=== PATIENT | male | born 1965 | race Caucasian/White ===

== ENCOUNTER 2020-04-04 20:41 | Emergency (ER) | payer MEDICAID ==
[~2020-04-04] VITALS: Ht 180.3 cm; Wt 63.5 kg
[2020-04-04 21:26] LABS: BASOPHILS # (AUTO) 0.03 x10^3/uL (0-0.1); BASOPHILS % (AUTO) 1 % (0-1); EOSINOPHILS # (AUTO) 0.07 x10^3/uL (0-0.4); EOSINOPHILS % (AUTO) 1 % (1-7); LYMPHOCYTES # (AUTO) 1.88 x10^3/uL (1-3.4); LYMPHOCYTES % (AUTO) 37 % (22-44); MD NO; MEAN CORPUSCULAR HGB CONC 33.1 g/dL (33.2-36.2); MONOCYTES # (AUTO) 0.62 x10^3/uL (0.2-0.8); MONOCYTES % (AUTO) 12 % (2-9); NEUTROPHILS # (AUTO) 2.51 x10^3/uL (1.8-6.8); NEUTROPHILS % (AUTO) 49 % (42-75); PLATELET COUNT 245 x10^3/uL (130-400); RED BLOOD COUNT 4.05 x10^6/uL (4.38-5.82); RED CELL DISTRIBUTION WIDTH 13.5 % (9.4-14.8)
[2020-04-04 21:37] LABS: ALANINE AMINOTRANSFERASE 15 U/L (12-78); ANION GAP 4 mmol/L (5-15); CALCIUM 8.3 mg/dL (8.5-10.1); CHLORIDE 110 mmol/L (98-107); CREATININE 0.79 mg/dL (0.7-1.3)
[2020-04-04 21:41] LABS: ALKALINE PHOSPHATASE 68 U/L (45-117); BILIRUBIN,TOTAL 0.4 mg/dL (0.2-1.0); TOTAL PROTEIN 5.6 g/dL (6.4-8.2); TROPONIN I 0.092 ng/mL (0.000-0.045)
[2020-04-04] MEDS ORDERED: SODIUM CHLORIDE 0.9% 1,000 ML IV SCH (22:26)
--- NOTE | 2020-04-04 22:29 | NUR ---
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 AT SENDING FACILITY, PATIENT WAS FOUND TO HAVE ELEVATED TROP AT 0.07 AND ELEVATED BNP AT 136 AND SENT HERE. PATIENT IS DROWSY, BUT EASILY AROUSED, A&OX4, VSS, PATIENT IS BRADYCARDIC IN THE 40'S, ERP AWARE. ALL MONITORING IN PLACE, VSS, NADN. CALL LIGHT IN REACH
[2020-04-04] MEDS: HEPARIN 5,000 UNITS/ML, 1ML SQ SCH (22:30)
[2020-04-04] MEDS ORDERED: ACETAMINOPHEN 325 MG TABLET PO PRN (22:30)
[2020-04-04] MEDS ORDERED: POLYETHYLENE GLYCOL 17 GM PACKET PO PRN (22:30)
[2020-04-04] MEDS ORDERED: NICOTINE 14MG/24 HR PATCH.TD24 TD SCH (22:30)
[2020-04-04] MEDS ORDERED: BISACODYL 10 MG SUPP PR PRN (22:30)
[2020-04-04] MEDS ORDERED: ONDANSETRON ODT 4 MG PO PRN (22:30)
[2020-04-04] MEDS ORDERED: morphine SULFATE 10 MG/ML, 1ML IVPush PRN (22:30)
[2020-04-04] MEDS ORDERED: NITROGLYCERIN 0.4 MG BOTTLE (25 TABS) SL PRN (22:30)
--- NOTE | 2020-04-04 22:41 | NUR ---
PT'S HR DECREASED TO 38. MD HADRWICK.
[2020-04-04] MEDS ORDERED: LEVE500T53 PO (22:42)
--- NOTE | 2020-04-04 23:53 | NUR ---
PATIENT SLEEPING, RESPIRATIONS EVEN AND UNLABORED. PATIENT BRADYCARDIC AT 36-40 BPM, ERP AWARE
--- NOTE | 2020-04-05 00:10 | NUR ---
REPEAT EKG COMPLETED, SHOWN TO PERRY SWAN THAT IS ADMITTING PATIENT
[2020-04-05] MEDS ORDERED: CARB100T4 PO (00:21)
--- NOTE | 2020-04-05 01:06 | NUR ---
PATIENT RESTING, RESPIRATIONS EVEN AND UNLABORED, NADN, ALL MONITORING IN PLACE.
--- NOTE | 2020-04-05 02:11 | NUR ---
PATIENT RESTING, RESPIRATIONS EVEN AND UNLABORED, NADN, ALL MONITORING IN PLACE.
--- NOTE | 2020-04-05 03:05 | NUR ---
REPORT FROM JENI BEAVER ASSUMING CARE OF PT AT THIS TIME
--- NOTE | 2020-04-05 04:00 | NUR ---
PT REQUESTING FOOD, PT EDUCATED THAT HE IS NPO FOR LEXISCAN TODAY. PT UNHAPPY BUT UNDERSTANDS IMPORTANCE
[2020-04-05 04:43] LABS: ALANINE AMINOTRANSFERASE 19 U/L (12-78); ALBUMIN 2.9 g/dL (3.4-5.0); ANION GAP 6 mmol/L (5-15); CALCIUM 8.2 mg/dL (8.5-10.1); CHLORIDE 108 mmol/L (98-107); CREATININE 0.68 mg/dL (0.7-1.3)
[2020-04-05 04:44] LABS: BASOPHILS # (AUTO) 0.06 x10^3/uL (0-0.1); BASOPHILS % (AUTO) 1 % (0-1); EOSINOPHILS # (AUTO) 0.13 x10^3/uL (0-0.4); EOSINOPHILS % (AUTO) 2 % (1-7); LYMPHOCYTES # (AUTO) 2.53 x10^3/uL (1-3.4); LYMPHOCYTES % (AUTO) 40 % (22-44); MD NO; MEAN CORPUSCULAR HEMOGLOBIN 30.1 pg (27.5-34.5); MEAN CORPUSCULAR HGB CONC 33.1 g/dL (33.2-36.2); MEAN PLATELET VOLUME 8.1 fL (7.4-10.4); MONOCYTES # (AUTO) 0.59 x10^3/uL (0.2-0.8); MONOCYTES % (AUTO) 9 % (2-9); NEUTROPHILS # (AUTO) 2.97 x10^3/uL (1.8-6.8); NEUTROPHILS % (AUTO) 47 % (42-75); PLATELET COUNT 246 x10^3/uL (130-400); RED BLOOD COUNT 4.23 x10^6/uL (4.38-5.82); RED CELL DISTRIBUTION WIDTH 13.5 % (9.4-14.8)
[2020-04-05 04:48] LABS: ALKALINE PHOSPHATASE 61 U/L (45-117); BILIRUBIN,TOTAL 0.3 mg/dL (0.2-1.0); CHOL/HDL RATIO 2.8; CHOLESTEROL, TOTAL 111 mg/dL (140-239); HDL CHOL % 35 % (26-37); HDL CHOLESTEROL (DIRECT) 39 mg/dL (40-60); LDL CHOLESTEROL,CALCULATED 53 mg/dL (54-169); LDL/HDL RATIO 1.4 (0.5-3.0); TOTAL PROTEIN 5.8 g/dL (6.4-8.2); TRIGLYCERIDES 93 mg/dL (50-200); TROPONIN I 0.084 ng/mL (0.000-0.045); VLDL CHOLESTEROL 19 mg/dL (0-25)
--- NOTE | 2020-04-05 05:00 | NUR ---
PT INSISTING ON LEAVING AMA WANTS TO GO EAT. PT BACK INTO BE AGREES TO WAIT A WHILE AND RELAX IN BED
--- NOTE | 2020-04-05 05:35 | NUR ---
PT DEMANDING FOOD, AGAIN EDUCATED ON NPO STATUS.
[2020-04-05] MEDS ORDERED: ASPIRIN 81 MG TABLET CHEW PO SCH (06:00)
--- NOTE | 2020-04-05 06:00 | NUR ---
PT DEMANDING TO LEAVE AMA REMOVING ALL MONITORING, DR MALDONADO CALLED AND INFORMED OF PT DEMAND TO LEAVE. STS OK FOR AMA. PT REFUSING TO ANSWER ALL QUESTIONS REFUSING TO TELL RN HIS NAME. PT GETTING DRESSED CURSING AT RN. "YOUR STUPID PAPER DOESN'T MEAN SHIT YOU LYING BITCH." "I DON'T CARE IF I FUCKING ON THE STREET I'M GOING TO GO EAT." PT SWINGING BELT AROUND ROOM ATTEMPTING TO GET DRESSED. RN HELD PRESSURE TO IV SITE, PT BECAME UNRESPONSIVE ASSISTED BACK TO BED. HR SHONDA BEEN CONSISTENT ALL NIGHT.
--- NOTE | 2020-04-05 06:23 | NUR ---
PT BECOMING MORE RESPONSIVE. NODS AND UNDERSTANDS RN.
--- NOTE | 2020-04-05 06:23 | NUR ---
FOR STAFF AND PT SAFETY PT PLACED IN 2PT RESTRAINTS DUE TO PT AGGRESSION.
--- NOTE | 2020-04-05 06:28 | NUR ---
PT NOW ATTEMPTING TO GET OUT OF BED AND DEMANDING FOOD AT THIS TIME. PT EDUCATED ON NPO AND LEXISCAN ONCE AGAIN.
[2020-04-05] MEDS ORDERED: ASPI-515 PO (07:04)
[2020-04-05] MEDS ORDERED: LEVE500T53 PO (07:04)
[2020-04-05] MEDS ORDERED: AMLO-150 PO (07:13)
--- NOTE | 2020-04-05 07:20 | NUR ---
PT RESTING ON GURNEY AT THIS TIME, VISIBLE CHEST RISE AND FALL NOTED. BP STABLE, HR REMAINS LOW 38-40S. PT IN 2 POINT RESTRAINTS, PER NOC RN PT COMBATIVE. PT IS TELE HOLD, AWAITING BED PLACEMENT
[2020-04-05 07:27] VITALS: BP 136/69
--- NOTE | 2020-04-05 07:31 | NUR ---
DISCUSSED RESTRAINT REMOVAL WITH PT. PT AGREEABLE TO NOT BE AGRESSIVE WITH STAFF. SECURITY CALLED TO RELEASE RESTRAINTS
--- NOTE | 2020-04-05 08:01 | NUR ---
RESTRAINTS REMOVED [id number]
[2020-04-05] MEDS ORDERED: REGADENOSON 0.4 MG/5 ML SYRINGE ONE (08:04)
--- NOTE | 2020-04-05 08:52 | NUR ---
PT TO NUC MED AT THIS TIME
[2020-04-05] MEDS ORDERED: LEVETIRACETAM 500 MG TABLET PO SCH (09:00)
[2020-04-05] MEDS ORDERED: AMLODIPINE 5 MG TABLET PO SCH (09:00)
[2020-04-05] MEDS ORDERED: SENNA/DOCUSATE TABLET PO SCH (09:00)
[2020-04-05] MEDS ORDERED: AMLODIPINE 5 MG TABLET ONE (10:41)
[2020-04-05] MEDS ORDERED: LEVETIRACETAM 500 MG TABLET ONE (10:41)
[2020-04-05] MEDS ORDERED: HEPARIN 5,000 UNITS/ML, 1ML ONE (10:42)
[2020-04-05] MEDS ORDERED: ASPIRIN 81 MG TABLET CHEW ONE (10:43)
[2020-04-05] MEDS: HEPARIN 5,000 UNITS/ML, 1ML SQ SCH (10:46)
--- NOTE | 2020-04-05 10:51 | NUR ---
PT MEDICATED PER MAR, PT HAS PULLED OFF ALL MONITORING EQUIP AT THIS TIME PT REFUSING TO BE MONITORED. MEAL TRAY ORDERED AND PROVIDED. AWAITING RESULTS OF NUC. NO OTHER NEEDS AT THIS TIME
--- NOTE | 2020-04-05 13:04 | NUR ---
PT LEFT AMA, [employer] UPDATED. ADMITTING MD NOTIFIED
== END 2020-04-05 13:22 | disposition left against medical advice (07) ==
LOC: ED 21:11 → UNDOADMIN 23:08 → EDIP 23:08 → ED 04-05 13:22
DX: R07.89 Other chest pain (principal); Z86.73 Personal history of transient ischemic attack (TIA), and cerebral infarction without residual deficits; R79.89 Other specified abnormal findings of blood chemistry
CPT/HCPCS: 36415; 78452; 80053; 80061; 84484; 85025; 93005; 93017; 96372; 99285; A9502; C9898; J1644; J2785; J7030

== ENCOUNTER 2020-04-05 15:33 | Emergency (ER) | payer MEDICAID ==
[~2020-04-05] VITALS: Ht 180.3 cm; Wt 65.0 kg
[~2020-04-05 15:33] MED LIST: AMLO-150 PO; ASPI-515 PO; CARB100T4 PO; LEVE500T53 PO
--- NOTE | 2020-04-05 15:44 | NUR ---
PT PREVIOUSLY HERE FOR SZ. PT THEN DEVELOPED BRADYCARDIA WITH SYNCOPAL EVENT. PT HAD POSITIVE LEXISCAN TODAY, PT RETURNS TO ED TO HAVE IV REMOVED. PT STRAIGHT BACK TO RM 17. PT APPEARS INTOXICATED, DROWSY, STUBBLING GAIT. PT DENIES CP AT THIS TIME. PT TO CARD MONITOR, BP, CONT PULSE OX. PIV IN PLACE
--- NOTE | 2020-04-05 16:53 | NUR ---
PT NOW CUSSING IN RM, PT STATES "IM FUCKING LEAVING, SCREW IT, I HAVE BEEN PROMISED FOOD BY TWO FUCKING PEOPLE NOW AND I STILL HAVE NO FUCKING FOOD" PT PULLING OFF MONITORS.
[2020-04-05 16:58] VITALS: BP 101/70
[2020-04-05] MEDS ORDERED: hydrALAzine 20 MG/ML, 1ML IVPush PRN (17:00)
[2020-04-05] MEDS ORDERED: ENOXAPARIN 40 MG/0.4 ML SQ SCH (17:00)
[2020-04-05] MEDS ORDERED: NITROGLYCERIN 0.4 MG BOTTLE (25 TABS) SL PRN (17:00)
[2020-04-05] MEDS ORDERED: MORPHINE SULFATE 4 MG/ML, 1ML IVPush PRN (17:00)
[2020-04-05] MEDS ORDERED: NICOTINE 21 MG/24 HR PATCH.TD24 TD ONE (17:00)
[2020-04-05] MEDS ORDERED: ONDANSETRON 2MG/ML, 2ML IVPush PRN (17:00)
--- NOTE | 2020-04-05 17:11 | NUR ---
PT LEFT AMA, PIV REMOVED. FISHING GAME WARDEN MADE AWARE, ADMITTING PROVIDER MADE AWARE
[2020-04-05 17:20] LABS: TROPONIN I 0.113 ng/mL (0.000-0.045)
[2020-04-05] MEDS ORDERED: FAMOTIDINE 20 MG TABLET PO SCH (21:00)
[2020-04-05] MEDS ORDERED: ATORVASTATIN 40 MG TABLET PO SCH (21:00)
[2020-04-05] MEDS ORDERED: LEVETIRACETAM 500 MG TABLET PO SCH (21:00)
[2020-04-06] MEDS ORDERED: ASPIRIN 325 MG TABLET EC PO SCH (06:00)
[2020-04-06] MEDS ORDERED: LISINOPRIL 10 MG TABLET PO SCH (09:00)
[2020-04-06] MEDS ORDERED: CARBAMAZEPINE 100 MG TAB.CHEW PO SCH (09:00)
== END 2020-04-05 17:18 ==
LOC: SUATTDRO 16:05 → ED 16:29
PROVIDERS: ATTEND Hospitalist
DX: I25.2 Old myocardial infarction (principal); F17.200 Nicotine dependence, unspecified, uncomplicated; R00.1 Bradycardia, unspecified; Z86.73 Personal history of transient ischemic attack (TIA), and cerebral infarction without residual deficits
CPT/HCPCS: 36415; 83036; 83880; 84484; 93005; 99284